=== PATIENT | male | born 1975 | race Caucasian/White ===

== ENCOUNTER → 2020-10-25 11:04 | Outpatient (BNVA) | payer BC, SELFPAY | PROVIDERS: Family Provider Family Medicine; PCP Family Medicine; Visit Provider Family Medicine | DX: E11.9 Type 2 diabetes mellitus without complications (principal); M10.9 Gout, unspecified; I10 Essential (primary) hypertension | CPT/HCPCS: 36416; 80053; 82962; 83036; 84550 ==

== ENCOUNTER → 2021-12-14 09:35 | Outpatient (BNVA) | payer BC, SELFPAY | PROVIDERS: Family Provider Family Medicine; PCP Family Medicine; Visit Provider Family Medicine | DX: E11.9 Type 2 diabetes mellitus without complications (principal); E78.00 Pure hypercholesterolemia, unspecified; I10 Essential (primary) hypertension; K52.9 Noninfective gastroenteritis and colitis, unspecified; M10.9 Gout, unspecified | CPT/HCPCS: 80053; 80061; 83036; 84550; 85025 ==

== ENCOUNTER → 2023-12-17 09:58 | Outpatient (BNVA) | payer BC, SELFPAY | PROVIDERS: Family Provider Family Medicine; PCP Family Medicine; Visit Provider Family Medicine | DX: I10 Essential (primary) hypertension (principal); E78.00 Pure hypercholesterolemia, unspecified; E11.65 Type 2 diabetes mellitus with hyperglycemia; M1A.0790 Idiopathic chronic gout, unspecified ankle and foot, without tophus (tophi); M19.172 Post-traumatic osteoarthritis, left ankle and foot; M54.40 Lumbago with sciatica, unspecified side; G89.29 Other chronic pain; Z79.899 Other long term (current) drug therapy | CPT/HCPCS: 80053; 80061; 83036; 84550; 85025 ==

== ENCOUNTER 2023-12-18 06:45 | Outpatient (CLI) | payer BC, SELFPAY ==
--- NOTE | 2023-12-18 07:08 | XR_ITS ---
WS: [id number] XR ankle LT min 3V* [id number] REASON FOR EXAM: worsening pain p 6 months FINDINGS: No fracture or focal bone lesion. No periosteal reaction or bone erosion. There is narrowing of the medial clear space. Remainder of the joint spaces of the left ankle are int act and relatively well preserved. IMPRESSION: Mild osteoarthritis of the left ankle.
== END 2023-12-18 06:46 | disposition home or self-care (01) ==
LOC: RAD 06:46
PROVIDERS: Family Provider Family Medicine; PCP Family Medicine; Visit Provider Family Medicine
DX: M19.172 Post-traumatic osteoarthritis, left ankle and foot (principal)
CPT/HCPCS: 73610

== ENCOUNTER → 2024-01-24 08:08 | Outpatient (BNVA) | payer BC, SELFPAY | PROVIDERS: Family Provider Family Medicine; PCP Family Medicine; Visit Provider Podiatrist Foot & Ankle Surgery | DX: M76.822 Posterior tibial tendinitis, left leg; M25.372 Other instability, left ankle; E11.65 Type 2 diabetes mellitus with hyperglycemia | CPT/HCPCS: 73610 ==

== ENCOUNTER → 2025-08-11 08:52 | Outpatient (BNVA) | payer BC, SELFPAY | PROVIDERS: Family Provider Family Medicine; PCP Family Medicine; Visit Provider Family Medicine | DX: M1A.0790 Idiopathic chronic gout, unspecified ankle and foot, without tophus (tophi) (principal); I10 Essential (primary) hypertension; E11.65 Type 2 diabetes mellitus with hyperglycemia | CPT/HCPCS: 80053; 83036; 84550; 85025 ==